=== PATIENT | female | born 1990 | race American Indian/Alaskan Native ===

== ENCOUNTER 2018-03-15 22:03 | Emergency (ER) | payer SELFPAY ==
[2018-03-16] MEDS ORDERED: DELTASONE PO ONE (03:04)
[2018-03-16] MEDS ORDERED: PEPCID PO ONE (03:04)
[2018-03-16] MEDS ORDERED: BENADRYL PO ONE (03:04)
--- NOTE | 2018-03-16 03:42 | Emergency Department Report ---
ED General Adult HPI - General Chief complaint: Skin Rash Stated complaint: RASH Time Seen by Provider: 03/16/18 03:03 Source: patient Mode of arrival: Ambulatory Limitations: No Limitations - History of Present Illness Initial comments: Patient 27-year-old female who presents for a rash to face trauma or after eating grapefruit today no history of similar past symptoms include itching pruritus shortness of breath no wheezing or stridor no nausea vomiting no dizziness or lightheadedness no rhinorrhea no high rash described as Skin tonec Raised smooth with itching no weeping and no erythema Onset/Timin -: days(s) Location: face, neck, chest, upper extremity Radiation: non-radiation Severity scale (0 -10): 5 Quality: burning, other (itching ) Consistency: intermittent Improves with: none Worsens with: other Associated Symptoms: rash. denies: confusion, chest pain, cough, diaphoresis, fever/chills, loss of appetite, malaise, nausea/vomiting, seizure, shortness of breath, syncope, weakness Treatments Prior to Arrival: none - Related Data Previous Rx's Medication Instructions Recorded Last Taken Type Prednisone [predniSONE 10 mg 10 mg PO .TAPER #1 tab.ds.pk 06/12/16 Unknown Rx (6-Day Pack, 21 Tabs)] diphenhydrAMINE [Benadryl CAP] 25 mg PO Q6HR PRN #20 capsule 06/12/16 Unknown Rx EPINEPHrine [Epipen 2-Rubén] 0.3 mg IJ PRN PRN #1 kit 03/16/18 Unknown Rx Famotidine [Pepcid] 20 mg PO BID PRN #30 tablet 03/16/18 Unknown Rx diphenhydrAMINE [Benadryl CAP] 25 mg PO Q6HR PRN #30 capsule 03/16/18 Unknown Rx predniSONE [Deltasone] 40 mg PO QDAY #10 tab 03/16/18 Unknown Rx Allergies Allergy/AdvReac Type Severity Reaction Status Date / Time No Known Allergies Allergy Unverified 06/12/16 01:10 ED Review of Systems ROS: Stated complaint: RASH Other details as noted in HPI Constitutional: denies: chills, fever Eyes: denies: eye pain, eye discharge, vision change ENT: denies: epistaxis Respiratory: denies: cough, shortness of breath, wheezing Cardiovascular: denies: chest pain, palpitations Endocrine: no symptoms reported Gastrointestinal: denies: abdominal pain, nausea, diarrhea Genitourinary: denies: urgency, dysuria, discharge Musculoskeletal: denies: back pain, joint swelling, arthralgia Skin: lesions (face trunk bilat upper extrems). denies: rash Neurological: denies: headache, weakness, numbness, paresthesias, abnormal gait , vertigo Psychiatric: denies: anxiety, depression Hematological/Lymphatic: denies: easy bleeding, easy bruising ED Past Medical Hx - Past Medical History Previous Medical History?: Yes - Surgical History Additional Surgical History: x2 with Blood transfusion - Social History Smoking Status: Never Smoker - Medications Home Medications: Home Medications Medication Instructions Recorded Confirmed Last Taken Type Prednisone [predniSONE 10 mg 10 mg PO .TAPER #1 tab.ds.pk 06/12/16 Unknown Rx (6-Day Pack, 21 Tabs)] diphenhydrAMINE [Benadryl CAP] 25 mg PO Q6HR PRN #20 capsule 06/12/16 Unknown Rx EPINEPHrine [Epipen 2-Rubén] 0.3 mg IJ PRN PRN #1 kit 03/16/18 Unknown Rx Famotidine [Pepcid] 20 mg PO BID PRN #30 tablet 03/16/18 Unknown Rx diphenhydrAMINE [Benadryl CAP] 25 mg PO Q6HR PRN #30 capsule 03/16/18 Unknown Rx predniSONE [Deltasone] 40 mg PO QDAY #10 tab 03/16/18 Unknown Rx ED Physical Exam - General Limitations: No Limitations General appearance: alert, in no apparent distress - Head Head exam: Present: atraumatic, normocephalic - Eye Eye exam: Present: normal appearance - ENT ENT exam: Present: mucous membranes moist - Neck Neck exam: Present: normal inspection, tenderness, full ROM, lymphadenopathy. Absent: thyromegaly - Respiratory Respiratory exam: Present: normal lung sounds bilaterally, stridor, chest wall tenderness. Absent: respiratory distress, wheezes, accessory muscle use, decreased breath sounds, prolonged expiratory - Cardiovascular Cardiovascular Exam: Present: regular rate, normal rhythm, normal heart sounds. Absent: systolic murmur, diastolic murmur, rubs, gallop - GI/Abdominal GI/Abdominal exam: Present: soft, normal bowel sounds. Absent: distended, tenderness, guarding, rebound, rigid, organomegaly, mass, bruit, pulsatile mass , hernia - Rectal Rectal exam: Present: deferred - Extremities Exam Extremities exam: Present: normal inspection, full ROM, normal capillary refill - Back Exam Back exam: Present: normal inspection, full ROM. Absent: tenderness, CVA tenderness (R), CVA tenderness (L), muscle spasm, paraspinal tenderness, vertebral tenderness, rash noted - Neurological Exam Neurological exam: Present: alert, oriented X3, CN II-XII intact, normal gait, reflexes normal - Psychiatric Psychiatric exam: Present: normal affect, normal mood, anxious ED Course Vital Signs 03/15/18 22:29 Temperature 98.2 F Pulse Rate 105 H Respiratory 20 Rate Blood Pressure 117/74 O2 Sat by Pulse 100 Oximetry ED Medical Decision Making - Medical Decision Making PT presented for contact dermatitis with pruritus. No fever no anaphylaxis plan Benadryl and prednisone Pepcid patient given EpiPen training for EpiPen follow with PCP in 2-3 days and return immediately should symptoms worsen patient verbalizes agreement and understanding of same was DC'd to home in stable condition at this time Critical care attestation.: If time is entered above; I have spent that time in minutes in the direct care of this critically ill patient, excluding procedure time. ED Disposition Clinical Impression: Contact allergic reaction Contact dermatitis Qualifiers: Contact dermatitis type: allergic Contact dermatitis trigger: dye Qualified Code(s): L23.4 - Allergic contact dermatitis due to dyes Disposition: Z-41 HOSPICE- MED FAC Is pt being admited?: No Does the pt Need Aspirin: No Condition: Good Instructions: Contact Dermatitis (ED), Epinephrine (Injection) Prescriptions: diphenhydrAMINE [Benadryl CAP] 25 mg PO Q6HR PRN #30 capsule PRN Reason: allergies EPINEPHrine [Epipen 2-Rubén] 0.3 mg IJ PRN PRN #1 kit PRN Reason: severe allergies Famotidine [Pepcid] 20 mg PO BID PRN #30 tablet PRN Reason: allergies predniSONE [Deltasone] 40 mg PO QDAY #10 tab Referrals: PRIMARY CARE, [Primary Care Provider] - 3-5 Days Forms: Work/School Release Form(ED) Time of Disposition: 03:58
[2018-03-16 05:33] VITALS: BP 120/70
== END 2018-03-16 03:55 ==
LOC: ED 22:03
DX: L23.4 Allergic contact dermatitis due to dyes (principal)
CPT/HCPCS: 99282; J7512

== ENCOUNTER 2019-02-11 09:09 | Emergency (ER) | payer SELFPAY ==
[2019-02-11 09:25] VITALS: BP 110/72
--- NOTE | 2019-02-11 10:03 | XRay Report ---
PA AND LATERAL CXR HISTORY: Shortness in breath and anxiety for 2 days. COMPARISON: None FINDINGS: Cardiomediastinal silhouette: Normal cardiac size. Normal mediastinal contours. Lungs: Normal expansion. Normal lung aeration. No pleural effusions. No pneumothorax. Pulmonary vascularity: Normal. Support hardware: None. Additional findings: None. IMPRESSION: No acute cardiopulmonary process. Signer Name: Florencio Wolfe Jr, MD Signed: 02/11/2019 9:58 AM Workstation Name: [id number]
[2019-02-11 11:05] LABS: Hematocrit 24.7 % (30.3-42.9); Hemoglobin 7.7 gm/dl (10.1-14.3); Mean Corpuscular HGB Conc 31 % (30-34); Platelet Count 419 K/mm3 (140-440); Red Blood Count 3.78 M/mm3 (3.65-5.03)
[2019-02-11 11:06] LABS: Mean Corpuscular Volume 65 fl (79-97)
[2019-02-11 11:30] LABS: BUN/Creatinine Ratio 23; Blood Urea Nitrogen 16 mg/dL (7-17); Calcium 9.1 mg/dL (8.4-10.2); Hemolysis Index 56
[2019-02-11 11:55] LABS: Bacteria,Urine 1+ /HPF (Negative); Bilirubin,Urine NEG (Negative); Blood,Urine NEG (Negative); Color,Urine Amber (Yellow); Mucus,Urine 2+ /HPF; Urobilinogen,Urine < 2.0 mg/dL (<2.0)
[2019-02-11 11:58] LABS: Protein,Urine >500 mg/dL (Negative)
--- NOTE | 2019-02-11 12:15 | Emergency Department Report ---
ED General Adult HPI - General Chief complaint: Anxiety Stated complaint: ANXIETY Time Seen by Provider: 02/11/19 10:18 Source: patient Mode of arrival: Ambulatory Limitations: No Limitations - History of Present Illness Initial comments: Patient is a 28-year-old female who is presenting with shortness of breath and fatigue. Patient states that symptoms of present off and on for "a while". Patient states that this is been present progressively worsening for the last several weeks to months but is unable to quantify exactly how long. Patient states she's had some weight loss as well as shortness of breath with exertion and fatigue. Patient states she is feeling very anxious for past 2 days and is quite worried that something is very wrong with her. Patient denies any headache syncope sore throat cough cold congestion. States has been no nausea vomiting or diarrhea. She does state that she has some dryness of the mouth and believes she may have thrush. There's been eating yogurt and taking probiotics. - Related Data Previous Rx's Medication Instructions Recorded Last Taken Type Prednisone [predniSONE 10 mg 10 mg PO .TAPER #1 tab.ds.pk 06/12/16 Unknown Rx (6-Day Pack, 21 Tabs)] diphenhydrAMINE [Benadryl CAP] 25 mg PO Q6HR PRN #20 capsule 06/12/16 Unknown Rx EPINEPHrine [Epipen 2-Rubén] 0.3 mg IJ PRN PRN #1 kit 03/16/18 Unknown Rx Famotidine [Pepcid] 20 mg PO BID PRN #30 tablet 03/16/18 Unknown Rx diphenhydrAMINE [Benadryl CAP] 25 mg PO Q6HR PRN #30 capsule 03/16/18 Unknown Rx predniSONE [Deltasone] 40 mg PO QDAY #10 tab 03/16/18 Unknown Rx Acyclovir [Zovirax] 400 mg PO TID 10 Days #30 tablet 06/25/18 Unknown Rx Docusate Sodium [Colace] 100 mg PO BID #28 capsule 02/11/19 Unknown Rx Ferrous Sulfate [Ferrous Sulfate 324 mg PO BID #28 tablet.dr 02/11/19 Unknown Rx 324 MG] Fluconazole [Diflucan TAB] 150 mg PO QWEEK #2 tablet 02/11/19 Unknown Rx Nystatin [Nystatin SUSP] 5 ml PO QID 7 Days ml 02/11/19 Unknown Rx Allergies Allergy/AdvReac Type Severity Reaction Status Date / Time No Known Allergies Allergy Verified 02/11/19 09:23 ED Review of Systems ROS: Stated complaint: ANXIETY Other details as noted in HPI Comment: All other systems reviewed and negative ED Past Medical Hx - Past Medical History Previous Medical History?: Yes Additional medical history: Anemia, herpes, anxiety, - Surgical History Past Surgical History?: Yes Additional Surgical History: x2 with Blood transfusion - Social History Smoking Status: Former Smoker Substance Use Type: Alcohol - Medications Home Medications: Home Medications Medication Instructions Recorded Confirmed Last Taken Type Prednisone [predniSONE 10 mg 10 mg PO .TAPER #1 tab.ds.pk 06/12/16 Unknown Rx (6-Day Pack, 21 Tabs)] diphenhydrAMINE [Benadryl CAP] 25 mg PO Q6HR PRN #20 capsule 06/12/16 Unknown Rx EPINEPHrine [Epipen 2-Rubén] 0.3 mg IJ PRN PRN #1 kit 03/16/18 Unknown Rx Famotidine [Pepcid] 20 mg PO BID PRN #30 tablet 03/16/18 Unknown Rx diphenhydrAMINE [Benadryl CAP] 25 mg PO Q6HR PRN #30 capsule 03/16/18 Unknown Rx predniSONE [Deltasone] 40 mg PO QDAY #10 tab 03/16/18 Unknown Rx Acyclovir [Zovirax] 400 mg PO TID 10 Days #30 tablet 06/25/18 Unknown Rx Docusate Sodium [Colace] 100 mg PO BID #28 capsule 02/11/19 Unknown Rx Ferrous Sulfate [Ferrous Sulfate 324 mg PO BID #28 tablet.dr 02/11/19 Unknown Rx 324 MG] Fluconazole [Diflucan TAB] 150 mg PO QWEEK #2 tablet 02/11/19 Unknown Rx Nystatin [Nystatin SUSP] 5 ml PO QID 7 Days ml 02/11/19 Unknown Rx ED Physical Exam - General Limitations: No Limitations General appearance: alert, in no apparent distress - Head Head exam: Present: atraumatic, normocephalic - Eye Eye exam: Present: normal appearance - ENT ENT exam: Present: mucous membranes moist. Absent: normal orophraynx (pt with thick white coating to tongue) - Neck Neck exam: Present: normal inspection - Respiratory Respiratory exam: Present: normal lung sounds bilaterally. Absent: respiratory distress, wheezes, rales, rhonchi - Cardiovascular Cardiovascular Exam: Present: normal rhythm, tachycardia. Absent: systolic murmur, diastolic murmur, rubs, gallop - GI/Abdominal GI/Abdominal exam: Present: soft, normal bowel sounds. Absent: distended, tend erness, guarding, rebound - Extremities Exam Extremities exam: Present: normal inspection - Back Exam Back exam: Present: normal inspection - Neurological Exam Neurological exam: Present: alert, oriented X3 - Psychiatric Psychiatric exam: Present: normal affect, normal mood - Skin Skin exam: Present: warm, dry, intact, normal color. Absent: rash ED Course Vital Signs 02/11/19 09:23 Temperature 98.0 F Pulse Rate 134 H Respiratory 16 Rate Blood Pressure 110/72 O2 Sat by Pulse 100 Oximetry ED Medical Decision Making - Lab Data Result diagrams: 02/11/19 10:44 02/11/19 10:44 Lab Results 02/11/19 02/11/19 02/11/19 Range/Units 10:44 10:44 10:44 WBC 4.0 L (4.5-11.0) K/mm3 RBC 3.78 (3.65-5.03) M/mm3 Hgb 7.7 L (10.1-14.3) gm/dl Hct 24.7 L (30.3-42.9) % MCV 65 L (79-97) fl MCH 20 L (28-32) pg MCHC 31 (30-34) % RDW 19.0 H (13.2-15.2) % Plt Count 419 (140-440) K/mm3 Sodium 135 L (137-145) mmol/L Potassium 4.2 (3.6-5.0) mmol/L Chloride 101.0 (98-107) mmol/L Carbon Dioxide 24 (22-30) mmol/L Anion Gap 14 mmol/L BUN 16 (7-17) mg/dL Creatinine 0.7 (0.7-1.2) mg/dL Estimated GFR > 60 ml/min BUN/Creatinine Ratio 23 % Glucose 81 (65-100) mg/dL Calcium 9.1 (8.4-10.2) mg/dL HCG, Qual Negative (Negative) Urine Color (Yellow) Urine Turbidity (Clear) Urine pH (5.0-7.0) Ur Specific Newton (1.003-1.030) Urine Protein (Negative) mg/dL Urine Glucose (UA) (Negative) mg/dL Urine Ketones (Negative) mg/dL Urine Blood (Negative) Urine Nitrite (Negative) Urine Bilirubin (Negative) Urine Urobilinogen (<2.0) mg/dL Ur Leukocyte Esterase (Negative) Urine WBC (Auto) (0.0-6.0) /HPF Urine RBC (Auto) (0.0-6.0) /HPF U Epithel Cells (Auto) (0-13.0) /HPF Urine Bacteria (Auto) (Negative) /HPF Urine Mucus /HPF 02/11/19 Range/Units 11:19 WBC (4.5-11.0) K/mm3 RBC (3.65-5.03) M/mm3 Hgb (10.1-14.3) gm/dl Hct (30.3-42.9) % MCV (79-97) fl MCH (28-32) pg MCHC (30-34) % RDW (13.2-15.2) % Plt Count (140-440) K/mm3 Sodium (137-145) mmol/L Potassium (3.6-5.0) mmol/L Chloride (98-107) mmol/L Carbon Dioxide (22-30) mmol/L Anion Gap mmol/L BUN (7-17) mg/dL Creatinine (0.7-1.2) mg/dL Estimated GFR ml/min BUN/Creatinine Ratio % Glucose (65-100) mg/dL Calcium (8.4-10.2) mg/dL HCG, Qual (Negative) Urine Color Cassandra (Yellow) Urine Turbidity Cloudy (Clear) Urine pH 5.0 (5.0-7.0) Ur Specific Newton 1.020 (1.003-1.030) Urine Protein >500 (Negative) mg/dL Urine Glucose (UA) Neg (Negative) mg/dL Urine Ketones 20 (Negative) mg/dL Urine Blood Neg (Negative) Urine Nitrite Neg (Negative) Urine Bilirubin Neg (Negative) Urine Urobilinogen < 2.0 (<2.0) mg/dL Ur Leukocyte Esterase Neg (Negative) Urine WBC (Auto) 11.0 H (0.0-6.0) /HPF Urine RBC (Auto) 4.0 (0.0-6.0) /HPF U Epithel Cells (Auto) 6.0 (0-13.0) /HPF Urine Bacteria (Auto) 1+ (Negative) /HPF Urine Mucus 2+ /HPF - EKG Data -: EKG Interpreted by Me EKG shows normal: sinus rhythm, axis, intervals, QRS complexes, ST-T waves Rate: tachycardia (102) - EKG Data Interpretation: other (mild sinus tacycardia) - Medical Decision Making After interpreting the patient's laboratory studies and is seen that she has a hemoglobin of 7.7 that did ask further questions about the patient's menstrual history. Patient states that she does have clots that she passes with her menses. She states her actual flow was not heavily but occasionally she'll have large clots. The patient likely has progressively become more more anemic. Patient will be started on iron therapy with Colace to prevent constipation. Patient also given nystatin. Is unknown whether there is some other underlying chronic condition going on with the patient it would cause her to have thrush. Patient given primary care for follow-up as well as [employer]. Critical care attestation.: If time is entered above; I have spent that time in minutes in the direct care of this critically ill patient, excluding procedure time. ED Disposition Clinical Impression: Symptomatic anemia, Thrush Disposition: - TO HOME OR SELFCARE Is pt being admited?: No Does the pt Need Aspirin: No Condition: Stable Instructions: Iron Rich Diet (ED), Iron Deficiency Anemia (ED), Oral Candidiasis (ED) Additional Instructions: Please make sure to follow up with the primary care physicians at [facility]. We are treating you for the chronic anemia. Your thrush will be treated as well however it is unknown at this time why the thrush is present. Please follow-up with primary care. Referrals: NONA PEGUERO MD [Primary Care Provider] - 3-5 Days ALEX CHAVIRA MD [Staff Physician] - 3-5 Days Time of Disposition: 12:15
[2019-02-11 14:27] LABS: Total Cells Counted 100
[2019-02-11 14:28] LABS: Anisocytosis 2+; Hypochromasia 2+; Ovalocytes 1+; Poikilocytosis 2+; Tear Drop Cells Few
[2019-02-11 14:29] LABS: Platelet Estimate Consistent w Auto
== END 2019-02-11 12:44 | disposition home or self-care (01) ==
LOC: ED 09:09
DX: B37.0 Candidal stomatitis (principal); D64.9 Anemia, unspecified; F41.9 Anxiety disorder, unspecified; Z87.891 Personal history of nicotine dependence
CPT/HCPCS: 36415; 71046; 80048; 81001; 84703; 85007; 85025; 87086; 93005; 93010

== ENCOUNTER 2019-02-12 10:36 | Emergency (ER) | payer OTHER ==
[2019-02-12 10:41] VITALS: BP 117/74
--- NOTE | 2019-02-12 11:51 | Emergency Department Report ---
ED General Adult HPI - General Chief complaint: Chest Pain Stated complaint: CHEST PAIN Time Seen by Provider: 02/12/19 11:16 Source: patient Mode of arrival: Ambulatory Limitations: No Limitations - History of Present Illness Initial comments: Patient presents to the emergency department with a chief complaint of shortness of breath. Patient states yesterday she presented to the emergency department with chest pain which was located on both sides of her chest. Patient states this morning she began to have worsening shortness of breath. Patient denies any headaches, abdominal pain, nausea or vomiting. -: Sudden Location: chest Severity scale (0 -10): 2 Quality: aching Consistency: constant Improves with: none Worsens with: none Associated Symptoms: denies other symptoms Treatments Prior to Arrival: none - Related Data Previous Rx's Medication Instructions Recorded Last Taken Type Prednisone [predniSONE 10 mg 10 mg PO .TAPER #1 tab.ds.pk 06/12/16 Unknown Rx (6-Day Pack, 21 Tabs)] diphenhydrAMINE [Benadryl CAP] 25 mg PO Q6HR PRN #20 capsule 06/12/16 Unknown Rx EPINEPHrine [Epipen 2-Rubén] 0.3 mg IJ PRN PRN #1 kit 03/16/18 Unknown Rx Famotidine [Pepcid] 20 mg PO BID PRN #30 tablet 03/16/18 Unknown Rx diphenhydrAMINE [Benadryl CAP] 25 mg PO Q6HR PRN #30 capsule 03/16/18 Unknown Rx predniSONE [Deltasone] 40 mg PO QDAY #10 tab 03/16/18 Unknown Rx Acyclovir [Zovirax] 400 mg PO TID 10 Days #30 tablet 06/25/18 Unknown Rx Docusate Sodium [Colace] 100 mg PO BID #28 capsule 02/11/19 Unknown Rx Ferrous Sulfate [Ferrous Sulfate 324 mg PO BID #28 tablet.dr 02/11/19 Unknown Rx 324 MG] Fluconazole [Diflucan TAB] 150 mg PO QWEEK #2 tablet 02/11/19 Unknown Rx Nystatin [Nystatin SUSP] 5 ml PO QID 7 Days ml 02/11/19 Unknown Rx ALBUTEROL Inhaler (OR & NICU) 2 puff IH Q4HR PRN #1 inhalation 02/12/19 Unknown Rx [ProAir HFA Inhaler] Naproxen [Naprosyn] 500 mg PO BID PRN #20 tablet 02/12/19 Unknown Rx Allergies Allergy/AdvReac Type Severity Reaction Status Date / Time No Known Allergies Allergy Verified 02/12/19 10:37 ED Review of Systems ROS: Stated complaint: CHEST PAIN Other details as noted in HPI Constitutional: denies: chills, fever Eyes: denies: eye pain, eye discharge, vision change ENT: denies: ear pain, throat pain Respiratory: shortness of breath. denies: cough, wheezing Cardiovascular: chest pain. denies: palpitations Endocrine: no symptoms reported Gastrointestinal: denies: abdominal pain, nausea, diarrhea Genitourinary: denies: urgency, dysuria, discharge Musculoskeletal: denies: back pain, joint swelling, arthralgia Skin: denies: rash, lesions Neurological: denies: headache, weakness, paresthesias Psychiatric: denies: anxiety, depression Hematological/Lymphatic: denies: easy bleeding, easy bruising ED Past Medical Hx - Past Medical History Additional medical history: Anemia, herpes, anxiety, - Surgical History Additional Surgical History: x2 with Blood transfusion - Social History Smoking Status: Never Smoker Substance Use Type: None - Medications Home Medications: Home Medications Medication Instructions Recorded Confirmed Last Taken Type Prednisone [predniSONE 10 mg 10 mg PO .TAPER #1 tab.ds.pk 06/12/16 Unknown Rx (6-Day Pack, 21 Tabs)] diphenhydrAMINE [Benadryl CAP] 25 mg PO Q6HR PRN #20 capsule 06/12/16 Unknown Rx EPINEPHrine [Epipen 2-Rubén] 0.3 mg IJ PRN PRN #1 kit 03/16/18 Unknown Rx Famotidine [Pepcid] 20 mg PO BID PRN #30 tablet 03/16/18 Unknown Rx diphenhydrAMINE [Benadryl CAP] 25 mg PO Q6HR PRN #30 capsule 03/16/18 Unknown Rx predniSONE [Deltasone] 40 mg PO QDAY #10 tab 03/16/18 Unknown Rx Acyclovir [Zovirax] 400 mg PO TID 10 Days #30 tablet 06/25/18 Unknown Rx Docusate Sodium [Colace] 100 mg PO BID #28 capsule 02/11/19 Unknown Rx Ferrous Sulfate [Ferrous Sulfate 324 mg PO BID #28 tablet.dr 02/11/19 Unknown Rx 324 MG] Fluconazole [Diflucan TAB] 150 mg PO QWEEK #2 tablet 02/11/19 Unknown Rx Nystatin [Nystatin SUSP] 5 ml PO QID 7 Days ml 02/11/19 Unknown Rx ALBUTEROL Inhaler (OR & NICU) 2 puff IH Q4HR PRN #1 inhalation 02/12/19 Unknown Rx [ProAir HFA Inhaler] Naproxen [Naprosyn] 500 mg PO BID PRN #20 tablet 02/12/19 Unknown Rx ED Physical Exam - General Limitations: No Limitations General appearance: alert, in no apparent distress - Head Head exam: Present: atraumatic, normocephalic - Eye Eye exam: Present: normal appearance, PERRL, EOMI - ENT ENT exam: Present: mucous membranes moist - Neck Neck exam: Present: normal inspection - Respiratory Respiratory exam: Present: normal lung sounds bilaterally. Absent: respiratory distress, chest wall tenderness - Cardiovascular Cardiovascular Exam: Present: regular rate, normal rhythm. Absent: systolic murmur, diastolic murmur, rubs, gallop - GI/Abdominal GI/Abdominal exam: Present: soft, normal bowel sounds. Absent: distended, tenderness - Extremities Exam Extremities exam: Present: normal inspection - Back Exam Back exam: Present: normal inspection - Neurological Exam Neurological exam: Present: alert, oriented X3, CN II-XII intact. Absent: motor sensory deficit - Psychiatric Psychiatric exam: Present: normal affect, normal mood - Skin Skin exam: Present: warm, dry, intact, normal color. Absent: rash ED Course Vital Signs 02/12/19 10:39 Temperature 98.2 F Pulse Rate 77 Respiratory 17 Rate Blood Pressure 117/74 O2 Sat by Pulse 97 Oximetry ED Medical Decision Making - Lab Data Lab Results 02/12/19 02/12/19 02/12/19 Range/Units 13:11 13:17 13:26 D-Dimer 403.50 H (0-234) ng/mlDDU Troponin T < 0.010 < 0.010 (0.00-0.029) ng/mL HCG, Quant (0-4) mIU/mL 02/12/19 Range/Units 14:19 D-Dimer (0-234) ng/mlDDU Troponin T (0.00-0.029) ng/mL HCG, Quant < 2 (0-4) mIU/mL - EKG Data -: EKG Interpreted by Me EKG shows normal: sinus rhythm Rate: normal - Radiology Data Radiology results: report reviewed - Medical Decision Making Imaging and laboratory values were reviewed from prior visit Discussed results with the patient Critical care attestation.: If time is entered above; I have spent that time in minutes in the direct care of this critically ill patient, excluding procedure time. ED Disposition Clinical Impression: Pleurisy Disposition: DC-01 TO HOME OR SELFCARE Is pt being admited?: No Does the pt Need Aspirin: No Condition: Stable Instructions: Pleurisy (ED) Additional Instructions: return if worse Referrals: PRIMARY CARE, [Referring] - 3-5 Days [facility] [Provider Group] - 3-5 Days [facility] [Provider Group] - 3-5 Days [facility] [Outside] - 3-[address] [facility] [Provider Group] - 3-5 Days Time of Disposition: 15:49
--- NOTE | 2019-02-12 15:14 | Nuclear Medicine Report ---
VENTILATION PERFUSION PULMONARY SCINTIGRAPHY HISTORY: Shortness of breath, evaluate for pulmonary embolus COMPARISON: 02/11/2019 at 0946 hours chest radiograph. TECHNIQUE: Radiopharmaceutical was inhaled. Tc-99m-MAA was then injected. Ventilation and perfusion images were acquired. RADIOPHARMACEUTICAL: 15.9 mCi of Xe-133 inhaled 4.9 mCi of Tc-99m-MAA injected FINDINGS: VENTILATION: No significant air trapping or defect. PERFUSION: No significant segmental or non-segmental defect. Additional Findings: None. IMPRESSION: 1. Low probability for pulmonary embolism. Signer Name: Florencio Wolfe Jr, MD Signed: 02/12/2019 3:10 PM Workstation Name: [id number]
== END 2019-02-12 16:01 | disposition home or self-care (01) ==
LOC: ED 10:36
DX: R09.1 Pleurisy (principal); F41.9 Anxiety disorder, unspecified; Z79.899 Other long term (current) drug therapy; Z86.2 Personal history of diseases of the blood and blood-forming organs and certain disorders involving the immune mechanism
CPT/HCPCS: 36415; 78582; 84484; 84702; 85379; 93005; 93010; 99283; A9540; A9558

== ENCOUNTER 2019-03-18 07:58 | Emergency (ER) | payer SELFPAY ==
[2019-03-18 08:08] VITALS: BP 113/80
[2019-03-18] MEDS ORDERED: SOLU-Medrol IM ONE (09:14)
--- NOTE | 2019-03-18 09:17 | Emergency Department Report ---
ED Rash HPI - HPI Chief Complaint: Skin Rash Stated Complaint: RASH/ALLERGIC REACTION Time Seen by Provider: 03/18/19 08:19 Duration: 3 Days Location: Abdomen, Upper Extremities, Other (face) Suspected Cause: Unknown Rash Symptoms: Yes Itching, No Facial Swelling, No Tongue/Oral Swelling, No Breathing Difficulties, No Choking Sensation, No Wheezing/Dyspnea, No Peeling, No Blistering, No Fever, No Lightheaded, No Malaise, No Myalgias Severity: mild Other History: 28-year-old female presents to ED with rash 3 days. Patient states rash is located to the face, arms, abdomen. Patient reports itching. Unknown trigger. Patient reports she took Benadryl prior to ED arrival, which helped to alleviate her symptoms. Rash is now mostly resolved. ED Review of Systems ROS: Stated complaint: RASH/ALLERGIC REACTION Other details as noted in HPI Comment: All other systems reviewed and negative Constitutional: denies: chills, fever Respiratory: denies: shortness of breath, stridor, wheezing Gastrointestinal: denies: nausea, vomiting Skin: rash ED Past Medical Hx - Past Medical History Previous Medical History?: Yes Additional medical history: Anemia, herpes, anxiety, - Surgical History Past Surgical History?: Yes Additional Surgical History: x2 with Blood transfusion - Social History Smoking Status: Never Smoker Substance Use Type: None - Medications Home Medications: Home Medications Medication Instructions Recorded Confirmed Last Taken Type Prednisone [predniSONE 10 mg 10 mg PO .TAPER #1 tab.ds.pk 06/12/16 Unknown Rx (6-Day Pack, 21 Tabs)] diphenhydrAMINE [Benadryl CAP] 25 mg PO Q6HR PRN #20 capsule 06/12/16 Unknown Rx EPINEPHrine [Epipen 2-Rubén] 0.3 mg IJ PRN PRN #1 kit 03/16/18 Unknown Rx Famotidine [Pepcid] 20 mg PO BID PRN #30 tablet 03/16/18 Unknown Rx diphenhydrAMINE [Benadryl CAP] 25 mg PO Q6HR PRN #30 capsule 03/16/18 Unknown R x predniSONE [Deltasone] 40 mg PO QDAY #10 tab 03/16/18 Unknown Rx Acyclovir [Zovirax] 400 mg PO TID 10 Days #30 tablet 06/25/18 Unknown Rx Docusate Sodium [Colace] 100 mg PO BID #28 capsule 02/11/19 Unknown Rx Ferrous Sulfate [Ferrous Sulfate 324 mg PO BID #28 tablet.dr 02/11/19 Unknown Rx 324 MG] Fluconazole [Diflucan TAB] 150 mg PO QWEEK #2 tablet 02/11/19 Unknown Rx Nystatin [Nystatin SUSP] 5 ml PO QID 7 Days ml 02/11/19 Unknown Rx ALBUTEROL Inhaler (OR & NICU) 2 puff IH Q4HR PRN #1 inhalation 02/12/19 Unknown Rx [ProAir HFA Inhaler] Naproxen [Naprosyn] 500 mg PO BID PRN #20 tablet 02/12/19 Unknown Rx predniSONE [Deltasone] 50 mg PO QDAY #5 tab 03/18/19 Unknown Rx Rash Exam - Exam General: Vital signs noted. No distress. Alert and acting appropriately. HEENT: No Periorbital Edema, No Conjuctival Injection, No Chemosis, No Perioral Edema, No Tongue Edema, No Uvular Edema, No Compromised Airway, No Drooling Lungs: Yes Good Air Exchange, No Wheezes, No Ronchi, No Stridor, No Cough, No Labored Respirations, No Retractions, No Use of Accessory Muscles, No Other Abnormal Lung Sounds Heart: Yes Regular Skin: No Urticarial Rash, No Maculopapular Rash, No Morbilliform rash, No Bulla(e), No Excoriations, No Weeping, No Tenderness, No Erythema, No Edema, No Encrustations Other: Positive: Abdomen Normal, Neurologic Normal, Musculoskeletal Normal ED Course Vital Signs 03/18/19 08:07 Temperature 98.4 F Pulse Rate 95 H Respiratory 16 Rate Blood Pressure 113/80 O2 Sat by Pulse 100 Oximetry Critical care attestation.: If time is entered above; I have spent that time in minutes in the direct care of this critically ill patient, excluding procedure time. ED Disposition Clinical Impression: Dermatitis Disposition: DC-01 TO HOME OR SELFCARE Is pt being admited?: No Condition: Stable Instructions: Contact Dermatitis (ED) Referrals: NONA PEGUERO MD [Primary Care Provider] - 3-5 Days Time of Disposition: 09:17
== END 2019-03-18 09:26 | disposition home or self-care (01) ==
LOC: ED 07:58
DX: L30.9 Dermatitis, unspecified (principal); F41.9 Anxiety disorder, unspecified; Z98.890 Other specified postprocedural states; Z79.899 Other long term (current) drug therapy
CPT/HCPCS: 96372; 99282; J2930

== ENCOUNTER 2019-05-03 08:59 | Emergency (ER) | payer SELFPAY ==
--- NOTE | 2019-05-03 09:47 | Emergency Department Report ---
- General Chief complaint: Skin Rash Stated complaint: RASH FACE/ARMS Time Seen by Provider: 05/03/19 09:30 Source: patient, old records reviewed Mode of arrival: Ambulatory Limitations: No Limitations - History of Present Illness Initial comments: 29-year-old female presents with a pruritic rash 3 days after using scented Dove soap. Patient was here in March for rash to extremities. PMD: [facility]. No other family members have a rash MD complaint: rash -: Gradual, days(s) (3) Location: face, RUE, LLE Severity: moderate Severity scale (0 -10): 1 Quality: other (pruritic) Consistency: constant Improves with: none Worsens with: none Context: other (dove scented soap) Associated symptoms: denies other symptoms Treatments Prior to Arrival: none - Related Data Previous Rx's Medication Instructions Recorded Last Taken Type Prednisone [predniSONE 10 mg 10 mg PO .TAPER #1 tab.ds.pk 06/12/16 Unknown Rx (6-Day Pack, 21 Tabs)] diphenhydrAMINE [Benadryl CAP] 25 mg PO Q6HR PRN #20 capsule 06/12/16 Unknown Rx EPINEPHrine [Epipen 2-Rubén] 0.3 mg IJ PRN PRN #1 kit 03/16/18 Unknown Rx Famotidine [Pepcid] 20 mg PO BID PRN #30 tablet 03/16/18 Unknown Rx diphenhydrAMINE [Benadryl CAP] 25 mg PO Q6HR PRN #30 capsule 03/16/18 Unknown Rx predniSONE [Deltasone] 40 mg PO QDAY #10 tab 03/16/18 Unknown Rx Acyclovir [Zovirax] 400 mg PO TID 10 Days #30 tablet 06/25/18 Unknown Rx Docusate Sodium [Colace] 100 mg PO BID #28 capsule 02/11/19 Unknown Rx Ferrous Sulfate [Ferrous Sulfate 324 mg PO BID #28 tablet.dr 02/11/19 Unknown Rx 324 MG] Fluconazole [Diflucan TAB] 150 mg PO QWEEK #2 tablet 02/11/19 Unknown Rx Nystatin [Nystatin SUSP] 5 ml PO QID 7 Days ml 02/11/19 Unknown Rx ALBUTEROL Inhaler (OR & NICU) 2 puff IH Q4HR PRN #1 inhalation 02/12/19 Unknown Rx [ProAir HFA Inhaler] Naproxen [Naprosyn] 500 mg PO BID PRN #20 tablet 02/12/19 Unknown Rx predniSONE [Deltasone] 50 mg PO QDAY #5 tab 03/18/19 Unknown Rx diphenhydrAMINE [Benadryl CAP] 25 mg PO Q6HR PRN #20 capsule 05/03/19 Unknown Rx predniSONE [Deltasone] 40 mg PO QDAY 5 Days tab 05/03/19 Unknown Rx Allergies Allergy/AdvReac Type Severity Reaction Status Date / Time No Known Allergies Allergy Verified 02/12/19 10:37 Abscess Boil HPI - HPI Chief Complaint: Skin Rash Stated Complaint: RASH FACE/ARMS Time Seen by Provider: 05/03/19 09:30 Home Medications: Previous Rx's Medication Instructions Recorded Last Taken Type Prednisone [predniSONE 10 mg 10 mg PO .TAPER #1 tab.ds.pk 06/12/16 Unknown Rx (6-Day Pack, 21 Tabs)] diphenhydrAMINE [Benadryl CAP] 25 mg PO Q6HR PRN #20 capsule 06/12/16 Unknown Rx EPINEPHrine [Epipen 2-Rubén] 0.3 mg IJ PRN PRN #1 kit 03/16/18 Unknown Rx Famotidine [Pepcid] 20 mg PO BID PRN #30 tablet 03/16/18 Unknown Rx diphenhydrAMINE [Benadryl CAP] 25 mg PO Q6HR PRN #30 capsule 03/16/18 Unknown Rx predniSONE [Deltasone] 40 mg PO QDAY #10 tab 03/16/18 Unknown Rx Acyclovir [Zovirax] 400 mg PO TID 10 Days #30 tablet 06/25/18 Unknown Rx Docusate Sodium [Colace] 100 mg PO BID #28 capsule 02/11/19 Unknown Rx Ferrous Sulfate [Ferrous Sulfate 324 mg PO BID #28 tablet.dr 02/11/19 Unknown Rx 324 MG] Fluconazole [Diflucan TAB] 150 mg PO QWEEK #2 tablet 02/11/19 Unknown Rx Nystatin [Nystatin SUSP] 5 ml PO QID 7 Days ml 02/11/19 Unknown Rx ALBUTEROL Inhaler (OR & NICU) 2 puff IH Q4HR PRN #1 inhalation 02/12/19 Unknown Rx [ProAir HFA Inhaler] Naproxen [Naprosyn] 500 mg PO BID PRN #20 tablet 02/12/19 Unknown Rx predniSONE [Deltasone] 50 mg PO QDAY #5 tab 03/18/19 Unknown Rx diphenhydrAMINE [Benadryl CAP] 25 mg PO Q6HR PRN #20 capsule 05/03/19 Unknown Rx predniSONE [Deltasone] 40 mg PO QDAY 5 Days tab 05/03/19 Unknown Rx Allergies/Adverse Reactions: Allergies Allergy/AdvReac Type Severity Reaction Status Date / Time No Known Allergies Allergy Verified 02/12/19 10:37 ED Review of Systems ROS: Stated complaint: RASH FACE/ARMS Other details as noted in HPI Comment: All other systems reviewed and negative ED Past Medical Hx - Past Medical History Previous Medical History?: Yes Additional medical history: Anemia, herpes, anxiety, - Surgical History Past Surgical History?: Yes Additional Surgical History: x2 with Blood transfusion - Social History Smoking Status: Former Smoker Substance Use Type: Alcohol - Medications Home Medications: Home Medications Medication Instructions Recorded Confirmed Last Taken Type Prednisone [predniSONE 10 mg 10 mg PO .TAPER #1 tab.ds.pk 06/12/16 Unknown Rx (6-Day Pack, 21 Tabs)] diphenhydrAMINE [Benadryl CAP] 25 mg PO Q6HR PRN #20 capsule 06/12/16 Unknown Rx EPINEPHrine [Epipen 2-Rubén] 0.3 mg IJ PRN PRN #1 kit 03/16/18 Unknown Rx Famotidine [Pepcid] 20 mg PO BID PRN #30 tablet 03/16/18 Unknown Rx diphenhydrAMINE [Benadryl CAP] 25 mg PO Q6HR PRN #30 capsule 03/16/18 Unknown Rx predniSONE [Deltasone] 40 mg PO QDAY #10 tab 03/16/18 Unknown Rx Acyclovir [Zovirax] 400 mg PO TID 10 Days #30 tablet 06/25/18 Unknown Rx Docusate Sodium [Colace] 100 mg PO BID #28 capsule 02/11/19 Unknown Rx Ferrous Sulfate [Ferrous Sulfate 324 mg PO BID #28 tablet.dr 02/11/19 Unknown Rx 324 MG] Fluconazole [Diflucan TAB] 150 mg PO QWEEK #2 tablet 02/11/19 Unknown Rx Nystatin [Nystatin SUSP] 5 ml PO QID 7 Days ml 02/11/19 Unknown Rx ALBUTEROL Inhaler (OR & NICU) 2 puff IH Q4HR PRN #1 inhalation 02/12/19 Unknown Rx [ProAir HFA Inhaler] Naproxen [Naprosyn] 500 mg PO BID PRN #20 tablet 02/12/19 Unknown Rx predniSONE [Deltasone] 50 mg PO QDAY #5 tab 03/18/19 Unknown Rx diphenhydrAMINE [Benadryl CAP] 25 mg PO Q6HR PRN #20 capsule 05/03/19 Unknown Rx predniSONE [Deltasone] 40 mg PO QDAY 5 Days tab 05/03/19 Unknown Rx ED Physical Exam - General Limitations: No Limitations - Other Other exam information: Gen.: No acute distress Head: Atraumatic Eyes: Normal appearance, no conjunctivitis ENT: Moist mucous membranes, no edema, no oral lesions Neck: Normal appearance, no posterior midline tenderness, no meningismus Chest: Clear to auscultation bilaterally Cardiovascular: Regular rate and rhythm Abdomen: Normal appearance, soft, nontender, no rebound or guarding, normal bowel sounds Back: Normal appearance, nontender Extremity: Full range of motion, normal appearance Neuro: Alert and oriented 3, clear speech, no focal motor or sensory deficit Psychiatric: Appropriate Skin: Pruritic papular rash to face and arms. Patient also has hyperpigmented areas on the antecubital fossa ED Course Vital Signs 05/03/19 09:03 Temperature 98.1 F Pulse Rate 118 H Respiratory 18 Rate Blood Pressure 117/76 O2 Sat by Pulse 100 Oximetry ED Medical Decision Making - Medical Decision Making Patient be treated symptomatically with steroids and Benadryl for pruritic rash. Also suspicious for eczema given hyperpigmented areas at the antecubital fossa. Outpatient follow-up will be encouraged. - Differential Diagnosis eczema, allergic reaction, drug reaction Critical Care Time: No Critical care attestation.: If time is entered above; I have spent that time in minutes in the direct care of this critically ill patient, excluding procedure time. ED Disposition Clinical Impression: Rash due to allergy, Pruritic rash, Atopic dermatitis Disposition: - TO HOME OR SELFCARE Is pt being admited?: No Does the pt Need Aspirin: No Condition: Stable Instructions: Acute Rash (ED), Eczema (ED) Additional Instructions: Take the medication as prescribed. Follow-up with your doctor or with the doctor/clinic provided. Return if symptoms worsen as indicated by your discharge instructions. Use [id number] Aveeno oatmeal bath skin irritation. Prescriptions: diphenhydrAMINE [Benadryl CAP] 25 mg PO Q6HR PRN #20 capsule PRN Reason: Itching predniSONE [Deltasone] 40 mg PO QDAY 5 Days tab Referrals: [facility] [Provider Group] - 3-5 Days Time of Disposition: 09:51
[2019-05-03 10:02] VITALS: BP 115/75
== END 2019-05-03 10:22 | disposition home or self-care (01) ==
LOC: ED 08:59
DX: L20.9 Atopic dermatitis, unspecified (principal); D64.9 Anemia, unspecified; Z87.891 Personal history of nicotine dependence